=== PATIENT | male | born 1995 | race Two or more races ===

== ENCOUNTER 2018-12-21 08:45 | Emergency (ER) | payer OTHER ==
[~2018-12-21] VITALS: Ht 172.7 cm; Wt 72.7 kg
[2018-12-21 08:46] VITALS: BP 172/92
[2018-12-21] MEDS ORDERED: IBUP-1114 PO (08:50)
[2018-12-21] MEDS ORDERED: NORCOTAB PO (09:18)
--- NOTE | 2018-12-21 09:25 | REP ---
Left wrist series: Four views. History: Left wrist pain. Injury 2017. No new injury. No comparison study. Findings: Four views of the left wrist show overall normal mineralization. There is no evidence of post-traumatic deformity or radiographic evidence of arthropathy. Soft tissues are unremarkable. Joint spaces are preserved. Impression: Normal radiographs of the left wrist. Electronically Signed by Phill Rodriguez MD 12/21/2018 09:17 A
[2018-12-21] MEDS ORDERED: NORCO, ANEXSIA 5/325MG TABLET (HYDROcodone/ACETAMINOPHEN) PO ONE (09:30)
== END 2018-12-21 09:31 | disposition home or self-care (01) ==
LOC: M ED 08:45
DX: M25.532 Pain in left wrist (principal); G89.29 Other chronic pain; F17.210 Nicotine dependence, cigarettes, uncomplicated

== ENCOUNTER → 2021-01-28 | Outpatient (CLI) | payer OTHER ==
[~2021-01-28] MED LIST: HYDR-3715 PO; IBUP-1114 PO
--- NOTE | 2021-01-28 12:28 | REP ---
INDICATION: ELBOW AND WRIST PAIN. COMPARISON: 12/21/2018 TECHNIQUE: AP and lateral views of the left wrist. FINDINGS: No obvious acute fracture or dislocation appreciated. IMPRESSION: No acute fracture or dislocation. If the patient remains symptomatic consider re-evaluation in 3-5 days. <Electronically signed by Dony Mo > 01/28/21 1229
--- NOTE | 2021-01-28 12:36 | REP ---
INDICATION: ELBOW AND WRIST PAIN. COMPARISON: None. TECHNIQUE: AP and lateral views of the left elbow FINDINGS: No evidence for acute or healed injury. Fat pads in normal position. Osseous structures and joint spaces are age-appropriate. IMPRESSION: Normal left elbow radiographs. <Electronically signed by Dony Mo > 01/28/21 1790
== END ==
LOC: M SOG 08:03
PROVIDERS: ATTEND Orthopaedic Surgery Sports Medicine
DX: G56.22 Lesion of ulnar nerve, left upper limb (principal); M67.432 Ganglion, left wrist

== ENCOUNTER → 2021-02-13 | Outpatient (CLI) | payer OTHER ==
--- NOTE | 2021-02-14 14:08 | SLEEPCENT ---
NOCTURNAL POLYSOMNOGRAPHY DATE: 02/13/2021 ORDERED BY: Rad Frausto, 's [facility]. Nocturnal polysomnography was performed for evaluation of sleep physiology in this patient with excessive somnolence. 6 hours and 44 minutes of data were reviewed. There were 186 minutes of sleep identified. Sleep latency was prolonged at 78.5 minutes. REM latency was prolonged at 206 minutes. Sleep architecture showed poor progression and there was a prolonged period of wake between midnight and 2 a.m. One REM cycle was appreciated. Overall sleep efficiency was 46.9%. The patient's electrocardiogram showed a an underlying sinus rhythm with very frequent ventricular ectopy. There were episodes of quadrigeminy, trigeminy, and bigeminy. The ventricular ectopic beats were not monomorphic and not associated with other physiologic changes within sleep such as stage or oxygenation. EEG showed reasonably normal waveforms for wake and sleep stages. There were only six respiratory events identified of 10 seconds in duration or greater for an apnea-hypopnea index within normal limits at 1.9. Snoring was appreciated in REM, but respiratory-related arousals only occurred 1.6 times per hour, and there were no oxygen desaturations less than 90%. Minor activity was appreciated in the left internal mammary artery graft leads. IMPRESSION: 1. Normal nocturnal polysomnography with minor snoring in stage REM. 2. Frequent ventricular ectopy, as noted above. RECOMMENDATION: Sleep physiology was reasonably normal; however, the frequent ventricular ectopy was notable and further evaluation of cardiac ectopy is recommended.
== END ==
LOC: M SLEEP 20:00
PROVIDERS: ATTEND Physician Assistant Medical
DX: G47.30 Sleep apnea, unspecified (principal)

== ENCOUNTER → 2021-02-28 | Outpatient (CLI) | payer OTHER ==
[~2021-02-28] MED LIST changes: +ISOVUE-300 61% 50ML VIAL As Ordered ONE; +PROHANCE 279.3MG/ML 5ML VIAL As Ordered ONE
--- NOTE | 2021-02-28 10:26 | REP ---
INDICATION: GANGLION LT WRIST ? TFCC CARPI ULNARIS TENDINITIS. COMPARISON: Radiographs . TECHNIQUE: Multiple sequences obtained in the axial, coronal and sagittal planes. Post arthrogram sequences obtained in the axial, coronal and sagittal planes with T1 fat saturation. FINDINGS: Triangular fibrocartilage: There is tear of the triangular fibrocartilage complex near the radial insertion. Scapholunate and lunatotriquetral ligaments: Intact. Flexor and extensor tendons: Intact. No tenosynovitis. Carpal tunnel region: No significant abnormality. No abnormal signal in median nerve. No ganglion cyst is seen. Joint fluid: No effusion. Distal radioulnar joint: There is mild to moderate fluid present. Bone marrow: No edema or occult fracture. IMPRESSION: There is tear of the triangular fibrocartilage complex near the radial insertion. <Electronically signed by Ruben Corley > 02/28/21 1022
--- NOTE | 2021-02-28 17:37 | REP ---
INDICATION: Ganglion LT WRIST ? TFCC CARPI ULNARIS TENDINITIS. COMPARISON: None. TECHNIQUE: The procedure was performed under the direct supervision of Dr. Corley. The benefits and risks including but not limited to pain infection and bleeding and anaphylaxis were explained to the patient and informed consent was obtained. The left radioscaphoid joint space was localized using fluoroscopic guidance. The skin was prepped and draped in a sterile fashion. 1% lidocaine was used as a local anesthetic. Using fluoroscopic guidance a 25 gauge needle was inserted and advanced into the joint. 3 cc of a solution containing 5 cc of Isovue 305 cc of the solution containing 20 cc of sterile saline and 0.15 cc of ProHance was injected into the joint. Images obtained during injection shows filling of the radiocarpal row. There is contrast seen extending into the distal radioulnar joint consistent with a triangular fibrocartilage complex tear. The scapholunate and lunatotriquetral ligaments appear intact. The needle was removed and the patient was taken to MRI for postprocedural imaging. The patient tolerated the procedure well and there were no immediate complications. 0.1 minutes of fluoro time was utilized for this procedure. FINDINGS: Images obtained during injection shows filling of the radiocarpal row. There is contrast seen extending into the distal radioulnar joint consistent with a triangular fibrocartilage complex tear. The scapholunate and lunatotriquetral ligaments appear intact. IMPRESSION: Images obtained during injection shows filling of the radiocarpal row. There is contrast seen extending into the distal radioulnar joint consistent with a triangular fibrocartilage complex tear. The scapholunate and lunatotriquetral ligaments appear intact. <Electronically signed by Chance Ricardo > 02/28/21 4251 <Electronically signed by Ruben Corley > 02/28/21 [id number]
== END ==
LOC: M RADPRO 06:35
PROVIDERS: ATTEND Orthopaedic Surgery Sports Medicine
DX: M67.432 Ganglion, left wrist (principal)
CPT/HCPCS: 25246; 73223; 77002; A9576; Q9967

== ENCOUNTER → 2021-03-08 | Outpatient (CLI) | payer OTHER ==
[~2021-03-08] MED LIST changes: -ISOVUE-300 61% 50ML VIAL As Ordered ONE; -PROHANCE 279.3MG/ML 5ML VIAL As Ordered ONE
--- NOTE | 2021-03-11 08:13 | REP ---
INDICATION: PAIN. COMPARISON: None. TECHNIQUE: AP, lateral, open mouth views of the cervical spine FINDINGS: Normal alignment and lordosis. Vertebral bodies intact. No acute fracture/compression injury or subluxation. No significant degenerative changes. IMPRESSION: Normal cervical spine radiographs. <Electronically signed by Dony Mo > 03/11/21 0851
== END ==
LOC: M SOG 11:32
PROVIDERS: ATTEND Orthopaedic Surgery Sports Medicine
DX: M54.12 Radiculopathy, cervical region (principal)

== ENCOUNTER → 2021-03-21 | Outpatient (CLI) | payer OTHER ==
--- NOTE | 2021-03-21 10:37 | REP ---
INDICATION: RADICULOPATHY. COMPARISON: None. TECHNIQUE: Sagittal T1, T2, STIR, axial T1 and T2 weighted MR images of the cervical spine are obtained. FINDINGS: There is mild multilevel degenerative disc disease with loss of disc height and disc desiccation seen diffusely through the cervical spine. Vertebral heights are preserved. No malalignments. On the sagittal T2 weighted images, the craniovertebral junction is unremarkable. Cervical cord appears normal in its course, caliber and signal characteristics. On review of axial images At C2-3 no significant canal or foraminal narrowing At C3-4 disc-osteophyte complex with mild canal narrowing and [id number] bilateral foraminal narrowing, greater on the left. At C4-5 no significant canal or foraminal narrowing At C5-6 no significant canal or foraminal narrowing At C6-7 and C7-T1 no significant canal or foraminal narrowing. IMPRESSION: Only mild degenerative disc disease. No evidence of limiting canal or foraminal stenosis or disc herniation. <Electronically signed by Jin Helton > 03/21/21 1033
== END ==
LOC: M PLARAD 09:13
PROVIDERS: ATTEND Orthopaedic Surgery Sports Medicine
DX: M54.12 Radiculopathy, cervical region (principal)